=== PATIENT | male | born 1980 | race Caucasian/White ===

== ENCOUNTER 2017-02-18 09:36 | Emergency (ER) | payer OTHER ==
[2017-02-18 09:40] VITALS: BMI 20.9
[2017-02-18 09:41] VITALS: BP 141/78; PULSE 82; RESP 16; TEMP 97.9
[2017-02-18 09:56] VITALS: O2SAT 98
--- NOTE | 2017-02-18 10:41 | ED PDOC ---
HPI: Skin/Bite Injury Time Seen by Provider: 02/18/17 10:16 Chief Complaint (Nursing): Abnormal Skin Integrity Chief Complaint (Provider): Abscess History Per: Patient History/Exam Limitations: no limitations Onset/Duration Of Symptoms: Days (x 3) Current Symptoms Are (Timing): Still Present Additional Complaint(s): Eric is a 37 y/o male who presents to the ED for evaluation of swelling and redness at the right upper leg, onset 3 days ago. States the area of swelling has been growing over time and has become increasing painful and burning. No fever, chills, nausea, vomiting, cough, congestion, shortness of breath, chest pain, numbness, weakness, or dizziness. Patient denies having history of prior abscess or similar symptoms. PMD: None provided Past Medical History Reviewed: Historical Data, Nursing Documentation, Vital Signs Vital Signs: Last Vital Signs Temp 97.9 F 02/18/17 09:40 Pulse 82 02/18/17 09:40 Resp 16 02/18/17 09:40 BP 141/78 02/18/17 09:40 Pulse Ox 98 02/18/17 10:43 - Medical History PMH: HIV - Surgical History Surgical History: Appendectomy - Family History Family History: States: Unknown Family Hx - Social History Current smoker - smoking cessation education provided: No Alcohol: None Drugs: Denies - Home Medications Home Medications: Ambulatory Orders Medication Instructions Recorded Clindamycin [Cleocin] 300 mg PO QID 7 Days cap 02/18/17 Ibuprofen [Motrin] 600 mg PO TID 7 Days tab 02/18/17 - Allergies Allergies/Adverse Reactions: Allergies Allergy/AdvReac Type Severity Reaction Status Date / Time No Known Allergies Allergy Verified 02/18/17 09:56 Review of Systems Constitutional: Negative for: Fever, Chills Cardiovascular: Negative for: Chest Pain Respiratory: Negative for: Cough, Shortness of Breath Genitourinary Male: Negative for: Dysuria Musculoskeletal: Positive for: Other (Redness and swelling to right thigh, + Pain) Neurological: Negative for: Weakness, Numbness, Headache, Dizziness Physical Exam - Reviewed Nursing Documentation Reviewed: Yes Vital Signs Reviewed: Yes - Physical Exam Appears: Positive for: Non-toxic, No Acute Distress Head Exam: Positive for: ATRAUMATIC, NORMAL INSPECTION, NORMOCEPHALIC Skin: Positive for: Normal Color, Warm, Dry Eye Exam: Positive for: EOMI, Normal appearance, PERRL Neck: Positive for: Normal, Painless ROM Cardiovascular/Chest: Positive for: Regular Rate, Rhythm. Negative for: Murmur Respiratory: Positive for: Normal Breath Sounds. Negative for: Accessory Muscle Use, Respiratory Distress Extremity: Positive for: Normal ROM, Other (Right anterior upper leg with indurated erythematous area, approximately 3 cm, with surrounding 4 cm of erythema. + Fluctuance; Tender; no dc.) Neurologic/Psych: Positive for: Alert, Oriented. Negative for: Motor/Sensory Deficits - ECG O2 Sat by Pulse Oximetry: 98 (RA) Pulse Ox Interpretation: Normal - Progress ED Course And Treament: 1233: Stable. AAOx3. Gave consent to do I and D. Aware a scar will be present after procedure. Tolerated procedure well. Medical Decision Making Medical Decision Making: Time: 10:34 Initial Impression: Abscess Initial Plan: --Toradol 15 mg IM --Wound culture Scribe Attestation: Documented by Clarice Henderson, acting as a scribe for Washington De Jesus MD Provider Scribe Attestation: All medical record entries made by the Scribe were at my direction and personally dictated by me. I have reviewed the chart and agree that the record accurately reflects my personal performance of the history, physical exam, medical decision making, and the department course for this patient. I have also personally directed, reviewed, and agree with the discharge instructions and disposition. Disposition - Clinical Impression Clinical Impression: Abscess - Patient ED Disposition Is Patient to be Admitted: No Counseled Patient/Family Regarding: Diagnosis, Need For Followup, Rx Given - Disposition Referrals: [facility] [Outside] - 02/19/17 [facility] [Outside] Disposition: Routine/Home Disposition Time: 12:41 Condition: STABLE Additional Instructions: Return if not better in 3 days. Come back in 4 days for packing removal or go to the primary care doctor for it. Prescriptions: Clindamycin [Cleocin] 300 mg PO QID 7 Days cap Ibuprofen [Motrin] 600 mg PO TID 7 Days tab Instructions: Abscess (ED) Forms: [employer] (Malagasy), [facility] ED School/Work Excuse Procedures - Incision and Drainage Site: R quadracep Blade Size: 11 I & D Procedure: betadine prep, gauze wick placed Progress: Tolerated well. 1% lido 3cc put around and in wound. 11 blade used to open 0.5cm on the abscess. 5cc of purulent dc removed. 1.5 inches of packing put in. Wound dressed with antibacterial ointment and dressing.
[2017-02-18] MEDS ORDERED: Lidocaine 1% Inj (20ml) ONE (10:56)
== END 2017-02-18 12:54 | disposition home or self-care (01) ==
LOC: H.ER 09:36
DX: L02.416 Cutaneous abscess of left lower limb (principal); B95.62 Methicillin resistant Staphylococcus aureus infection as the cause of diseases classified elsewhere
CPT/HCPCS: 10060; 87070; 87181; 96372; 99284; J1885

== ENCOUNTER 2017-02-22 10:52 | Emergency (ER) | payer OTHER ==
[2017-02-22 10:53] VITALS: BMI 20.9
[2017-02-22 10:57] VITALS: BP 135/70; PULSE 81; TEMP 97; O2SAT 100
--- NOTE | 2017-02-22 11:58 | ED PDOC ---
HPI: Wound Care - HPI Time Seen by Provider: 02/22/17 11:22 Chief Complaint (Nursing): Wound Check Chief Complaint (Provider): wound care History Per: Patient Exam Limitations: no limitations Additional Complaint(s): 37yo M in ER for eval of abscess I&D and packing removal-done 3days ago. pt denies fever chills nausea of vomiting. denies pain to leg. Past Medical History Reviewed: Historical Data, Nursing Documentation, Vital Signs Vital Signs: Last Vital Signs Temp 97 F L 02/22/17 10:56 Pulse 81 02/22/17 10:56 Resp BP 135/70 02/22/17 10:56 Pulse Ox 100 02/22/17 10:56 - Medical History PMH: HIV Denies: Chronic Kidney Disease - Surgical History Surgical History: Appendectomy - Family History Family History: States: Unknown Family Hx - Home Medications Home Medications: Ambulatory Orders Medication Instructions Recorded Clindamycin [Cleocin] 300 mg PO QID 7 Days cap 02/18/17 Ibuprofen [Motrin] 600 mg PO TID 7 Days tab 02/18/17 - Allergies Allergies/Adverse Reactions: Allergies Allergy/AdvReac Type Severity Reaction Status Date / Time No Known Allergies Allergy Verified 02/18/17 09:56 Review of Systems ROS Statement: Except As Marked, All Systems Reviewed And Found Negative Constitutional: Negative for: Fever, Chills Physical Exam - Reviewed Nursing Documentation Reviewed: Yes Vital Signs Reviewed: Yes - Physical Exam Appears: Positive for: Well, Non-toxic, No Acute Distress Head Exam: Positive for: NORMOCEPHALIC Skin: Positive for: Normal Color, Warm, DRY Eye Exam: Positive for: EOMI Cardiovascular/Chest: Positive for: Regular Rate, Rhythm Respiratory: Positive for: CNT, Normal Breath Sounds Extremity: Positive for: Other (thigh: right anterior abscess noted packing in place no active drainage. ) Neurologic/Psych: Positive for: Alert, Oriented - ECG O2 Sat by Pulse Oximetry: 100 Medical Decision Making Medical Decision Making: packing removed without complication pt to f.u with pmd apply warm compress to area no need for further ER f.u unless abscess formation Disposition - Clinical Impression Clinical Impression: Encounter for wound re-check - Patient ED Disposition Is Patient to be Admitted: No Counseled Patient/Family Regarding: Diagnosis, Need For Followup - Disposition Disposition: Routine/Home Disposition Time: 12:01 Condition: STABLE Additional Instructions: apply warm compress Instructions: Abscess (ED), Abscess Follow-up (ED)
== END 2017-02-22 12:13 | disposition home or self-care (01) ==
LOC: H.ER 10:52
DX: Z48.00 Encounter for change or removal of nonsurgical wound dressing (principal)

== ENCOUNTER 2018-07-31 11:58 | Emergency (ER) | payer SELFPAY ==
[2018-07-31 11:58] VITALS: BMI 20.9
[2018-07-31 12:09] VITALS: BP 121/73; PULSE 78; RESP 16; TEMP 98.3; O2SAT 99
--- NOTE | 2018-07-31 12:45 | ED PDOC ---
HPI: Eye Injury/Pain Time Seen by Provider: 07/31/18 12:17 Chief Complaint (Nursing): Eye Problem Chief Complaint (Provider): Eye problem History Per: Patient History/Exam Limitations: no limitations Onset/Duration Of Symptoms: Days (4x) Current Symptoms Are (Timing): Still Present Injury To Eye?: No Severity: Moderate Associated Symptoms: Swelling, Discharge From Eye (yellow), Other ((+) redness, (-) fevers). denies: Decreased Vision Additional Complaint(s): 38 year old male with a past medical history of HIV presents to the ED for an evaluation of left eye upper eyelid swelling and redness that started 3x days ago. Patient states that 3x days ago he developed left upper eyelid swelling, and for the past 2x days it has progressively worsened to eye redness with yellow discharge. Patient states that he wears contact lenses. Patient denies having visual changes, fevers, or trauma to the eye. PMD: Denis Molina MD Past Medical History Reviewed: Historical Data, Nursing Documentation, Vital Signs Vital Signs: Last Vital Signs Temp 98.3 F 07/31/18 12:06 Pulse 78 07/31/18 12:06 Resp 16 07/31/18 12:06 BP 121/73 07/31/18 12:06 Pulse Ox 99 07/31/18 12:06 [place] Report Viewed: Yes - Medical History PMH: HIV Denies: Chronic Kidney Disease - Surgical History Surgical History: Appendectomy - Family History Family History: States: No Known Family Hx - Social History Current smoker - smoking cessation education provided: No Alcohol: None Drugs: Denies - Immunization History Hx Tetanus Toxoid Vaccination: No - Home Medications Home Medications: Ambulatory Orders Medication Instructions Recorded Clindamycin [Cleocin] 300 mg PO QID 7 Days cap 02/18/17 Ibuprofen [Motrin] 600 mg PO TID 7 Days tab 02/18/17 Ciprofloxacin HCl [Ciloxan] 1 appl LEFTEYE Q12 #1 bottle 07/31/18 - Allergies Allergies/Adverse Reactions: Allergies Allergy/AdvReac Type Severity Reaction Status Date / Time No Known Allergies Allergy Verified 02/18/17 09:56 Review of Systems ROS Statement: Except As Marked, All Systems Reviewed And Found Negative Constitutional: Negative for: Fever Eyes: Positive for: Redness (left upper eyelid redness, swelling, with yellow discharge). Negative for: Vision Change Physical Exam - Reviewed Nursing Documentation Reviewed: Yes Vital Signs Reviewed: Yes - Physical Exam Appears: Positive for: Well, Non-toxic, No Acute Distress Head Exam: Positive for: ATRAUMATIC, NORMOCEPHALIC Skin: Positive for: Normal Color, Warm, Dry Eye Exam: Positive for: EOMI (without pain), PERRL, Conjunctival injection (mod erate left conjunctival injection with yellow discharge. minimal left upper eyelid edema). Negative for: Periorbital tenderness Neurological/Psych: Positive for: Awake, Alert, Oriented (3x) - ECG O2 Sat by Pulse Oximetry: 99 (RA) Pulse Ox Interpretation: Normal Medical Decision Making Medical Decision Makin:17 Initial impression: 38 year old male with conjunctivitis Scribe Attestation: Documented by Jamee Moralez, acting as a scribe for Garret Flores Provider Scribe Attestation: All medical record entries made by the Scribe were at my direction and personally dictated by me. I have reviewed the chart and agree that the record accurately reflects my personal performance of the history, physical exam, medical decision making, and the department course for this patient. I have also personally directed, reviewed, and agree with the discharge instructions and disposition. Disposition - Clinical Impression Clinical Impression: Conjunctivitis - Patient ED Disposition Is Patient to be Admitted: No - Disposition Referrals: Denis Molina MD [Family Provider] - Disposition: Routine/Home Disposition Time: 12:45 Condition: STABLE Additional Instructions: FOLLOW UP WIHT DR. MOLINA FOR FURTHER EVALUATION RETURN TO ED IMMEDIATELY IF SYMPTOMS WORSEN [facility] GREGORIO, thank you for letting us take care of you today. Your provider was Andria Zuluaga MD and you were treated for EYE IRRITATION. The emergency medical care you received today was directed at your acute symptoms. If you were prescribed any medication, please fill it and take as directed. It may take several days for your symptoms to resolve. Return to the Emergency Department if your symptoms worsen, do not improve, or if you have any other problems. Please contact your doctor or call one of the physicians/clinics you have been referred to that are listed on the Patient Visit Information form that is included in your discharge packet. Bring any paperwork you were given at discharge with you along with any medications you are taking to your follow up visit. Our treatment cannot replace ongoing medical care by a primary care provider outside of the emergency department. Thank you for allowing the [facility] team to be part of your care today. If you had an X-Ray or CT scan: A Radiologist will review the ED reading if any change in treatment is needed we will contact you. If you had a blood, urine, or wound culture: It will take several days for the results, if any change in treatment is needed we will contact you. If you had an STI test: It will take 48 hours for the results. Please call after 1 week if you have not heard back. Prescriptions: Ciprofloxacin HCl [Ciloxan] 1 appl LEFTEYE Q12 #1 bottle Instructions: Conjunctivitis ([place]) (DC) Forms: [facility] ED School/Work Excuse Print Language: KINYARWAN[place]
== END 2018-07-31 12:57 | disposition home or self-care (01) ==
LOC: H.ER 11:58
DX: H10.9 Unspecified conjunctivitis (principal)